=== PATIENT | female | born 1975 | race African-American/Black ===

== ENCOUNTER 2022-03-03 18:12 | Emergency (ER) | payer SELFPAY ==
[~2022-03-03] VITALS: Ht 165.1 cm; Wt 109.0 kg
[2022-03-03 18:33] VITALS: BP 145/77
[2022-03-03] MEDS ORDERED: IBUP-2029 MT (20:15)
== END 2022-03-03 20:34 | disposition home or self-care (01) ==
LOC: ER 18:12
DX: S86.012A Strain of left Achilles tendon, initial encounter (principal); X58.XXXA Exposure to other specified factors, initial encounter; Y93.89 Activity, other specified; Y92.89 Other specified places as the place of occurrence of the external cause; Y99.8 Other external cause status
CPT/HCPCS: 29515; 73590; 73610; 73630; 99284; Z7610